=== PATIENT | female | born 2005 | race Caucasian/White ===

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

== ENCOUNTER 2023-02-28 00:35 | Emergency (ER) | payer OTHER | END 2023-02-28 01:51 | disposition home or self-care (01) | LOC: ED 00:35 | DX: S66.911A Strain of unspecified muscle, fascia and tendon at wrist and hand level, right hand, initial encounter (principal); S60.211A Contusion of right wrist, initial encounter; F41.9 Anxiety disorder, unspecified; Z88.8 Allergy status to other drugs, medicaments and biological substances; Z98.890 Other specified postprocedural states; W20.8XXA Other cause of strike by thrown, projected or falling object, initial encounter; Y93.89 Activity, other specified; Y92.89 Other specified places as the place of occurrence of the external cause; Y99.0 Civilian activity done for income or pay ==

== ENCOUNTER 2025-06-30 11:02 | Inpatient (IN) | payer OTHER ==
[~2025-06-30] VITALS: Ht 154.9 cm; Wt 50.6 kg
[2025-06-30 11:39] VITALS: BP 114/96
[2025-06-30] MEDS ORDERED: FERROUS FUMARA324 MG PO (11:40)
[2025-06-30] MEDS ORDERED: ACETAMINOPHEN 60 ML IV ONE (11:50)
[2025-06-30] MEDS ORDERED: SODIUM CHLORIDE 0.9% 1,000 ML IV SCH (11:50)
[2025-06-30] MEDS ORDERED: IOHEXOL 300 MG/ML 100 ML VIAL IV ONE (11:55)
[2025-06-30 12:03] LABS: MEAN CELL VOLUME 75.6 fl (81.0-99.0); MEAN CORPUSCULAR HGB 22.2 pg (27.0-31.0); MEAN PLATELET VOLUME 9.8 fl (9.6-12.3); NUCLEATED RED BLOOD CELL 0.0 % (0.0-0.0); NUCLEATED RED BLOOD CELL 0.0 10*3/uL (0.0-0.0); PLATELET COUNT AUTOMATED 258 10*3/uL (130-400); RED CELL DISTRI WIDTH 17.5 % (0-14.5)
[2025-06-30 12:11] LABS: MANUAL DIFF REFLEX YES
[2025-06-30 12:23] LABS: BILIRUBIN Negative (Negative); BLOOD 2+ (Negative); CLARITY Turbid (Clear); COLOR Dark Yellow (Yellow); KETONE Trace (Negative); LEUKO ESTERASE 2+ (Negative); NITRITE Positive (Negative); PH 5.5 (4.5-8.0); SPECIFIC GRAVITY 1.015 (1.001-1.030); UROBILINOGEN 1.0 E.U./dl (0.0-1.0)
[2025-06-30 12:24] LABS: BUN 9 mg/dl (9-23); PLATELET SUFFICIENCY NORMAL (NORMAL)
[2025-06-30 12:55] LABS: BACTERIA 3+; MUCOUS 2+; RBC 16-20 rbc/hpf (0-2); WBC TNTC wbc/hpf (0-5)
[2025-06-30 14:12] VITALS: BP 108/88
[2025-06-30] MEDS ORDERED: ACETAMINOPHEN 650 MG SUPP R PRN (15:05)
[2025-06-30] MEDS ORDERED: Acetaminophen/Hydrocodone 5 MG/325 MG TABLET PO PRN (15:05)
[2025-06-30] MEDS ORDERED: ACETAMINOPHEN 325 MG TAB PO PRN (15:05)
[2025-06-30] MEDS ORDERED: Ondansetron Hydrochloride 4 MG/2 ML VIAL IV PRN (15:05)
[2025-06-30] MEDS ORDERED: SODIUM CHLORIDE 0.9% 500 ML IV ONE (16:05)
[2025-06-30 20:46] VITALS: BP 97/56
[2025-06-30 21:00] VITALS: BP 110/57
[2025-07-01] VITALS: BP 126/67; BP 139/84; BP 98/60
[2025-07-01 06:54] LABS: BASO # 0.0 10*3/uL (0.0-0.1); BASO % 0.3 % (0.0-1.0); BUN 8 mg/dl (9-23); EOS # 0.1 10*3/uL (0.0-0.4); EOS % 0.5 % (1.0-4.0); FREE T4 1.22 ng/dl (0.89-1.76); MEAN CELL VOLUME 74.5 fl (81.0-99.0); MEAN CORPUSCULAR HGB 22.4 pg (27.0-31.0); MEAN PLATELET VOLUME 10.4 fl (9.6-12.3); MONO # 1.1 10*3/uL (0.1-1.0); MONO % 11.6 % (3.0-9.0); NEUT # 7.5 10*3/uL (2.3-7.9); NEUT % 77.6 % (47.0-73.0); NUCLEATED RED BLOOD CELL 0.0 % (0.0-0.0); NUCLEATED RED BLOOD CELL 0.0 10*3/uL (0.0-0.0); PLATELET COUNT AUTOMATED 211 10*3/uL (130-400); RED CELL DISTRI WIDTH 17.3 % (0-14.5); SGPT/ALT 14 U/L (5-49)
[2025-07-01 08:00] VITALS: BP 99/60
[2025-07-01 12:00] VITALS: BP 90/52
[2025-07-01 16:00] VITALS: BP 113/63
[2025-07-01 20:00] VITALS: BP 102/69
[2025-07-02] VITALS: BP 101/62
[2025-07-02 06:37] LABS: BUN 9 mg/dl (9-23)
[2025-07-02 06:45] LABS: BASO # 0.0 10*3/uL (0.0-0.1); BASO % 0.3 % (0.0-1.0); EOS # 0.2 10*3/uL (0.0-0.4); EOS % 2.1 % (1.0-4.0); MEAN CELL VOLUME 73.3 fl (81.0-99.0); MEAN CORPUSCULAR HGB 22.2 pg (27.0-31.0); MEAN PLATELET VOLUME 10.1 fl (9.6-12.3); MONO # 0.9 10*3/uL (0.1-1.0); MONO % 12.3 % (3.0-9.0); NEUT # 5.1 10*3/uL (2.3-7.9); NEUT % 72.8 % (47.0-73.0); NUCLEATED RED BLOOD CELL 0.0 % (0.0-0.0); NUCLEATED RED BLOOD CELL 0.0 10*3/uL (0.0-0.0); PLATELET COUNT AUTOMATED 228 10*3/uL (130-400); RED CELL DISTRI WIDTH 17.2 % (0-14.5)
[2025-07-02 08:00] VITALS: BP 111/65
[2025-07-02 12:00] VITALS: BP 109/71
[2025-07-02 16:00] VITALS: BP 105/62
[2025-07-02 20:00] VITALS: BP 99/62
[2025-07-03] VITALS: BP 101/64
[2025-07-03 08:00] VITALS: BP 107/65
[2025-07-03 12:00] VITALS: BP 111/74
[2025-07-03] MEDS ORDERED: LEVOFLOXACIN750 M2 PO (13:15)
== END 2025-07-03 14:10 | disposition home or self-care (01) | DRG 720 ==
LOC: ED 11:02 → EDHOLD 14:45 → 4E 14:45
PROVIDERS: Emergency Medicine; ADMIT Internal Medicine; ATTEND Internal Medicine
DX: A41.51 Sepsis due to Escherichia coli [E. coli] (principal); N30.01 Acute cystitis with hematuria; D50.9 Iron deficiency anemia, unspecified; R73.9 Hyperglycemia, unspecified; F17.290 Nicotine dependence, other tobacco product, uncomplicated; N12 Tubulo-interstitial nephritis, not specified as acute or chronic; Z79.899 Other long term (current) drug therapy; Z79.01 Long term (current) use of anticoagulants; Z79.2 Long term (current) use of antibiotics; Z82.5 Family history of asthma and other chronic lower respiratory diseases; Z80.8 Family history of malignant neoplasm of other organs or systems